=== PATIENT | female | born 2005 | race Two or more races ===

== ENCOUNTER 2025-02-10 10:01 | Emergency (ER) | payer OTHER ==
[~2025-02-10] VITALS: Ht 170.2 cm; Wt 70.5 kg
[2025-02-10 10:03] VITALS: TEMP 98.1
[2025-02-10] MEDS: IBUPROFEN 600 MG TABLET PO ONE (12:57)
[2025-02-10] MEDS ORDERED: IBUP-1492 PO (14:33)
[2025-02-10 14:53] VITALS: BP 118/69; PULSE 79; RESP 18; O2SAT 100
== END 2025-02-10 14:53 | disposition home or self-care (01) ==
LOC: EMS 10:17
DX: S40.012A Contusion of left shoulder, initial encounter (principal); T76.11XA Adult physical abuse, suspected, initial encounter; X58.XXXA Exposure to other specified factors, initial encounter; Y93.89 Activity, other specified; Y92.89 Other specified places as the place of occurrence of the external cause; Y99.8 Other external cause status
CPT/HCPCS: 99283